=== PATIENT | female | born 2000 | race American Indian/Alaskan Native ===

== ENCOUNTER 2021-04-25 22:49 | Emergency (ER) | payer SELFPAY ==
[2021-04-25 23:34] VITALS: BP 104/29
[2021-04-26] MEDS ORDERED: oxyCODONE /ACETAMINOPHEN 5-325MG TAB PO ONE (02:03)
[2021-04-26] MEDS ORDERED: IBUPROFEN 800 MG TAB PO ONE (02:03)
--- NOTE | 2021-04-26 02:04 | Emergency Department Report ---
- General Chief complaint: Skin/Abscess/Foreign Body Stated complaint: ABSCESS ON BUTTOCK Time Seen by Provider: 04/26/21 01:57 Source: patient Mode of arrival: Ambulatory Limitations: No Limitations - History of Present Illness Initial comments: 20-year-old female presents to the ER today with complaints of an abscess. Patient reports that couple days ago she started with a small bump to her right buttocks since it has gotten bigger and more painful. She reports mild drainage from it. She reports associated diaphoresis and chills but no apparent fever. She denies similar symptoms in the past. She denies any injury to the area of insect bites. She denies any significant past medical history. MD complaint: abscess/boil -: Gradual, days(s) (2) - Related Data Previous Rx's Medication Instructions Recorded Last Taken Type Clindamycin [Clindamycin CAP] 300 mg PO Q6H #40 capsule 04/26/21 Unknown Rx HYDROcodone/APAP 5-325 [[place] 1 each PO Q4HR PRN #12 tablet 04/26/21 Unknown Rx 5/325] Ibuprofen [Motrin] 600 mg PO Q8H PRN #30 tablet 04/26/21 Unknown Rx Allergies Allergy/AdvReac Type Severity Reaction Status Date / Time No Known Allergies Allergy Unverified 04/25/21 23:29 Abscess Boil HPI - HPI Chief Complaint: Skin/Abscess/Foreign Body Stated Complaint: ABSCESS ON BUTTOCK Time Seen by Provider: 04/26/21 01:57 Home Medications: Previous Rx's Medication Instructions Recorded Last Taken Type Clindamycin [Clindamycin CAP] 300 mg PO Q6H #40 capsule 04/26/21 Unknown Rx HYDROcodone/APAP 5-325 [[place] 1 each PO Q4HR PRN #12 tablet 04/26/21 Unknown Rx 5/325] Ibuprofen [Motrin] 600 mg PO Q8H PRN #30 tablet 04/26/21 Unknown Rx Allergies/Adverse Reactions: Allergies Allergy/AdvReac Type Severity Reaction Status Date / Time No Known Allergies Allergy Unverified 04/25/21 23:29 ED Review of Systems ROS: Stated complaint: ABSCESS ON BUTTOCK Other details as noted in HPI Comment: All other systems reviewed and negative Constitutional: chills. denies: fever Skin: other (Abscess) ED Past Medical Hx - Past Medical History Previous Medical History?: No - Surgical History Past Surgical History?: No - Medications Home Medications: Home Medications Medication Instructions Recorded Confirmed Last Taken Type Clindamycin [Clindamycin CAP] 300 mg PO Q6H #40 capsule 04/26/21 Unknown Rx HYDROcodone/APAP 5-325 [[place] 1 each PO Q4HR PRN #12 tablet 04/26/21 Unknown Rx 5/325] Ibuprofen [Motrin] 600 mg PO Q8H PRN #30 tablet 04/26/21 Unknown Rx ED Physical Exam - General Limitations: No Limitations General appearance: alert, in distress (Secondary to pain) - Head Head exam: Present: atraumatic, normocephalic, normal inspection - Respiratory Respiratory exam: Absent: respiratory distress - Cardiovascular Cardiovascular Exam: Present: regular rate - Neurological Exam Neurological exam: Present: alert, oriented X3, CN II-XII intact, normal gait - Psychiatric Psychiatric exam: Present: normal affect, normal mood - Skin Skin exam: Present: intact, other (Approximately 4 cm x 5 cm indurated, fluctuant, erythematous area with mild to moderate surrounding cellulitis mainly around the edges of the abscess but no streaking. There is slight drainage from the abscess. No rectal involvement) ED Course Vital Signs 04/25/21 04/25/21 04/26/21 23:32 23:34 05:10 Temperature 100.5 F H 99.0 F Pulse Rate 103 H 89 Respiratory 18 17 Rate Blood Pressure 104/29 O2 Sat by Pulse 97 97 Oximetry - I & D Right Buttocks Type of Procedure: Complex Site: Right buttocks Blade Size: 11 I & D Procedure: betadine prep, gauze wick placed Progress: Patient tolerated procedure well without any complications. ED Medical Decision Making - Medical Decision Making Patient with an approximately 4 x 4 centimeter abscess to her left buttocks with some surrounding cellulitis but no streaking. It does not appear to be any rectal involvement. Patient was mildly tachycardic and had a low-grade temp on arrival but vital signs have improved with meds. Patient reports feeling somewhat better after incision and drainage. Patient overall is not toxic, she is not ill-appearing, she is well-hydrated, and she is neurologically intact. There is no signs of sepsis and at this time there is no indication for additional testing, or admission to the hospital. Patient will be started on antibiotics, and she will be given medication for pain. Wound care discussed with patient. Patient expressed understanding of instructions and agree with plan. Patient was stable at time of discharge Critical care attestation.: If time is entered above; I have spent that time in minutes in the direct care of this critically ill patient, excluding procedure time. ED Disposition Clinical Impression: Abscess of right buttock Disposition: DC-01 TO HOME OR SELFCARE Is pt being admited?: No Does the pt Need Aspirin: No Condition: Stable Instructions: Skin Abscess, [id number], Incision and Drainage, Care After Additional Instructions: Take the clindamycin as prescribed until completion. Take the ibuprofen and the hydrocodone as prescribed to help with pain. You can remove the packing in 2 days, if you are uncomfortable removing it at home you can follow-up with your primary care doctor in 2 days or return to the ER. Prescriptions: Clindamycin [Clindamycin CAP] 300 mg PO Q6H #40 capsule Ibuprofen [Motrin] 600 mg PO Q8H PRN #30 tablet PRN Reason: Pain HYDROcodone/APAP 5-325 [[place] 5/325] 1 each PO Q4HR PRN #12 tablet PRN Reason: Pain Referrals: CLAYTON JUAREZ MD [Staff Physician] - 3-5 Days Time of Disposition: 04:58
[2021-04-26] MEDS ORDERED: LIDOCAINE 1%/EPINEPHRINE 1:100,000 VIAL (20 ML) INFILTRATI ONE (02:41)
[2021-04-26] MEDS ORDERED: EMLA CREAM 5 GM TP ONE (02:43)
== END 2021-04-26 05:10 | disposition home or self-care (01) ==
LOC: ED 22:49
DX: L02.31 Cutaneous abscess of buttock (principal); Z79.899 Other long term (current) drug therapy
CPT/HCPCS: 99282